=== PATIENT | male | born 1980 | race Caucasian/White ===

== ENCOUNTER 2025-02-14 07:39 | Day surgery (SDC) | payer BC ==
[2025-02-13 11:18] VITALS: BMI 44.9
[2025-02-14 08:26] LABS: #Basophils 0.08 10x3/uL (0.0-0.2); #Eosinophils 0.40 10x3/uL (0.0-0.5); #Monocytes 0.52 10x3/uL (0.0-1.1); #Neutrophils 4.08 10x3/uL (1.5-8.4); %Basophils 1.1 % (0.0-2.0); %Eosinophils 5.6 % (0.0-6.0); %Lymphocytes 29.2 % (18.0-47.0); %Monocytes 7.2 % (0.0-10.0); %Neutrophils 56.6 % (40.0-75.0); Hematocrit 42.8 % (38.8-50.0); Hemoglobin 14.6 g/dL (13.5-17.5); Mean Corpuscular Hemoglobin 28.9 pg (27.0-33.0); Mean Corpuscular Volume 84.6 fL (81.2-95.1); Platelet Count 281 10x3/uL (150-450); Red Blood Cell (RBC) Count 5.06 10x6/uL (4.32-5.72); White Blood Cell (WBC) Count 7.20 10x3/uL (3.5-10.5)
[2025-02-14 08:46] LABS: Anion Gap 15 mmol/L (10-20); BUN (Urea Nitrogen) 13 mg/dL (8.9-20.6); Calc. Creatinine Clearance 194 mL/min (70-130); Calcium 8.9 mg/dL (7.8-10.44); Carbon Dioxide 21 mmol/L (22-29); Chloride 109 mmol/L (98-107); Glucose 101 mg/dL (70-105); Potassium 4.0 mmol/L (3.5-5.1); Sodium 141 mmol/L (136-145)
[2025-02-14] MEDS ORDERED: Rocuronium Bromide 10 MG/ML (10ML VIAL) ONE (10:12)
[2025-02-14] MEDS ORDERED: Ondansetron PF 4 MG/2 ML Vial ONE (10:12)
[2025-02-14] MEDS ORDERED: PROPOFOL 40 ML ONE (10:12)
[2025-02-14] MEDS ORDERED: SUGAMMADEX SODIUM 200 MG/2 ML VIAL ONE ×2 (10:12→11:00)
[2025-02-14] MEDS ORDERED: Lidocaine 1% PF 5 ML VIAL ONE (10:13)
[2025-02-14] MEDS ORDERED: CEFAZOLIN 2 GM VIAL ONE (10:20)
[2025-02-14] MEDS ORDERED: oFLOXacin 0.3% Opth 5 ML BOT ONE (10:20)
[2025-02-14] MEDS ORDERED: Lidocaine 1% w/Epinephrine 1:100K 20 ML VIAL ONE (10:39)
[2025-02-14] MEDS ORDERED: HYDROcodone/Acetaminophen 5/325 mg Tablet ONE (14:31)
== END 2025-02-14 15:12 | disposition home or self-care (01) ==
LOC: CSHSDC 07:39
PROVIDERS: ATTEND Otolaryngology Plastic Surgery within the Head & Neck
DX: H90.3 Sensorineural hearing loss, bilateral (principal); E78.00 Pure hypercholesterolemia, unspecified; F32.A Depression, unspecified; F41.9 Anxiety disorder, unspecified; E66.9 Obesity, unspecified; Z86.718 Personal history of other venous thrombosis and embolism; Z86.73 Personal history of transient ischemic attack (TIA), and cerebral infarction without residual deficits; Z90.49 Acquired absence of other specified parts of digestive tract; Z68.44 Body mass index [BMI] 60.0-69.9, adult; Z79.01 Long term (current) use of anticoagulants; Z79.82 Long term (current) use of aspirin; Z79.899 Other long term (current) drug therapy
CPT/HCPCS: 36415; 80048; 85025; J0169; J1100; J2250; J2405; J2704; J3010; L8614